=== PATIENT | female | born 1975 | race Two or more races ===

== ENCOUNTER 2017-07-28 18:06 | Emergency (ER) | payer MEDICAID ==
[2017-07-28] MEDS ORDERED: PRED20TA PO (18:45)
[2017-07-28 19:01] VITALS: BP 131/91
== END 2017-07-28 19:02 | disposition home or self-care (01) ==
LOC: ER 18:07
DX: I77.6 Arteritis, unspecified (principal); Z79.899 Other long term (current) drug therapy
CPT/HCPCS: 99283

== ENCOUNTER 2020-03-11 09:20 | Day surgery (SDC) | payer MEDICAID ==
[2020-03-11] MEDS ORDERED: LIDOcaine 1% w/epiNEPHrine 1:200,000 30ml vial ONE (10:10)
== END 2020-03-12 12:46 | disposition home or self-care (01) ==
LOC: WOUND CARE 09:20
PROVIDERS: ATTEND Nurse Practitioner
DX: E11.622 Type 2 diabetes mellitus with other skin ulcer (principal); L98.492 Non-pressure chronic ulcer of skin of other sites with fat layer exposed; L73.2 Hidradenitis suppurativa; J44.9 Chronic obstructive pulmonary disease, unspecified; M19.90 Unspecified osteoarthritis, unspecified site; Z79.899 Other long term (current) drug therapy; Z79.84 Long term (current) use of oral hypoglycemic drugs
CPT/HCPCS: 82948; 87070; 87075; 87102; 97597

== ENCOUNTER 2020-03-18 09:25 | Day surgery (SDC) | payer MEDICAID ==
[2020-03-18] MEDS ORDERED: LIDOcaine 2% 5ml jelly ONE (10:16)
== END 2020-03-18 10:58 | disposition home or self-care (01) ==
LOC: WOUND CARE 09:25
PROVIDERS: ATTEND Nurse Practitioner
DX: E11.622 Type 2 diabetes mellitus with other skin ulcer (principal); L98.492 Non-pressure chronic ulcer of skin of other sites with fat layer exposed; L73.2 Hidradenitis suppurativa; J44.9 Chronic obstructive pulmonary disease, unspecified; M19.90 Unspecified osteoarthritis, unspecified site; Z79.899 Other long term (current) drug therapy; Z79.84 Long term (current) use of oral hypoglycemic drugs
CPT/HCPCS: 36416; 82948; 97597

== ENCOUNTER 2020-03-25 12:00 | Day surgery (SDC) | payer MEDICAID ==
[2020-03-25] MEDS ORDERED: LIDOcaine 2% 5ml jelly ONE (12:56)
== END 2020-03-25 14:26 | disposition home or self-care (01) ==
LOC: WOUND CARE 12:00
PROVIDERS: ATTEND Nurse Practitioner
DX: E11.622 Type 2 diabetes mellitus with other skin ulcer (principal); L98.492 Non-pressure chronic ulcer of skin of other sites with fat layer exposed; L73.2 Hidradenitis suppurativa; J44.9 Chronic obstructive pulmonary disease, unspecified; M19.90 Unspecified osteoarthritis, unspecified site; Z79.899 Other long term (current) drug therapy; Z79.84 Long term (current) use of oral hypoglycemic drugs
CPT/HCPCS: 15271; 36416; 82948; Q4196

== ENCOUNTER 2020-04-01 13:17 | Day surgery (SDC) | payer MEDICAID ==
[2020-04-01] MEDS ORDERED: LIDOcaine 2% 5ml jelly ONE (14:09)
== END 2020-04-01 15:06 | disposition home or self-care (01) ==
LOC: WOUND CARE 13:17
PROVIDERS: ATTEND Nurse Practitioner
DX: E11.622 Type 2 diabetes mellitus with other skin ulcer (principal); L98.492 Non-pressure chronic ulcer of skin of other sites with fat layer exposed; L73.2 Hidradenitis suppurativa; J44.9 Chronic obstructive pulmonary disease, unspecified; M19.90 Unspecified osteoarthritis, unspecified site; Z79.899 Other long term (current) drug therapy; Z79.84 Long term (current) use of oral hypoglycemic drugs
CPT/HCPCS: 87070; 87075; 87102; 97597; 97598

== ENCOUNTER 2020-04-07 12:45 | Day surgery (SDC) | payer MEDICAID | END 2020-04-07 14:30 | disposition home or self-care (01) | LOC: WOUND CARE 12:45 | PROVIDERS: ATTEND Nurse Practitioner | DX: E11.622 Type 2 diabetes mellitus with other skin ulcer (principal); L98.492 Non-pressure chronic ulcer of skin of other sites with fat layer exposed; L02.412 Cutaneous abscess of left axilla; L73.2 Hidradenitis suppurativa; J44.9 Chronic obstructive pulmonary disease, unspecified; M19.90 Unspecified osteoarthritis, unspecified site; Z79.899 Other long term (current) drug therapy; Z79.84 Long term (current) use of oral hypoglycemic drugs | CPT/HCPCS: 82948; 97597 ==

== ENCOUNTER 2020-04-21 10:47 | Day surgery (SDC) | payer MEDICAID ==
[2020-04-21] MEDS ORDERED: LIDOcaine 2% 5ml jelly ONE (11:19)
== END 2020-04-21 12:04 | disposition home or self-care (01) ==
LOC: WOUND CARE 10:47
PROVIDERS: ATTEND Nurse Practitioner
DX: E11.622 Type 2 diabetes mellitus with other skin ulcer (principal); L98.492 Non-pressure chronic ulcer of skin of other sites with fat layer exposed; L02.412 Cutaneous abscess of left axilla; L73.2 Hidradenitis suppurativa; J44.9 Chronic obstructive pulmonary disease, unspecified; M19.90 Unspecified osteoarthritis, unspecified site; Z79.899 Other long term (current) drug therapy; Z79.84 Long term (current) use of oral hypoglycemic drugs
CPT/HCPCS: 97597

== ENCOUNTER 2020-04-28 09:17 | Day surgery (SDC) | payer MEDICAID ==
[2020-04-28] MEDS ORDERED: LIDOcaine 2% 5ml jelly ONE (09:32)
== END 2020-04-28 10:08 | disposition home or self-care (01) ==
LOC: WOUND CARE 09:17
PROVIDERS: ATTEND Nurse Practitioner
DX: E11.622 Type 2 diabetes mellitus with other skin ulcer (principal); L98.492 Non-pressure chronic ulcer of skin of other sites with fat layer exposed; L02.412 Cutaneous abscess of left axilla; L73.2 Hidradenitis suppurativa; J44.9 Chronic obstructive pulmonary disease, unspecified; M19.90 Unspecified osteoarthritis, unspecified site; Z79.899 Other long term (current) drug therapy; Z79.84 Long term (current) use of oral hypoglycemic drugs
CPT/HCPCS: 36416; 82948; 97597

== ENCOUNTER 2020-05-05 09:27 | Outpatient (CLI) | payer MEDICAID ==
[2020-05-05] MEDS ORDERED: LIDOcaine 2% 5ml jelly ONE (09:43)
== END 2020-05-05 23:59 | disposition home or self-care (01) ==
LOC: WOUND CARE 09:27
PROVIDERS: ATTEND Nurse Practitioner
DX: L02.412 Cutaneous abscess of left axilla (principal); E11.622 Type 2 diabetes mellitus with other skin ulcer; L73.2 Hidradenitis suppurativa; L98.492 Non-pressure chronic ulcer of skin of other sites with fat layer exposed; J44.9 Chronic obstructive pulmonary disease, unspecified; M19.90 Unspecified osteoarthritis, unspecified site; Z79.899 Other long term (current) drug therapy; Z79.84 Long term (current) use of oral hypoglycemic drugs
CPT/HCPCS: 36416; 82948; 97597

== ENCOUNTER 2020-05-12 09:39 | Outpatient (CLI) | payer MEDICAID ==
[2020-05-12] MEDS ORDERED: LIDOcaine 2% 5ml jelly ONE (10:28)
== END 2020-05-12 23:59 | disposition home or self-care (01) ==
LOC: WOUND CARE 09:39
PROVIDERS: ATTEND Nurse Practitioner
DX: E11.622 Type 2 diabetes mellitus with other skin ulcer (principal); L98.492 Non-pressure chronic ulcer of skin of other sites with fat layer exposed; L02.412 Cutaneous abscess of left axilla; L73.2 Hidradenitis suppurativa; J44.9 Chronic obstructive pulmonary disease, unspecified; M19.90 Unspecified osteoarthritis, unspecified site; Z79.899 Other long term (current) drug therapy; Z79.84 Long term (current) use of oral hypoglycemic drugs
CPT/HCPCS: 82948; 97597

== ENCOUNTER 2020-05-19 10:10 | Outpatient (CLI) | payer MEDICAID ==
[2020-05-19] MEDS ORDERED: LIDOcaine 2% 5ml jelly ONE (10:36)
[2020-05-19 12:17] LABS: BASOPHILS # (AUTO) 0.1 X10'3 (0-0.2); BASOPHILS % (AUTO) 0.8 % (0-1); EOSINOPHILS # (AUTO) 0.6 X10'3 (0-0.9); EOSINOPHILS % (AUTO) 4.5 % (0-6); LYMPHOCYTES # (AUTO) 3.1 X10'3 (1.1-4.8); LYMPHOCYTES % (AUTO) 22.3 % (21-51); MEAN CORPUSCULAR HEMOGLOBIN 27.3 PG (27.0-31.0); MEAN CORPUSCULAR HGB CONC 32.6 g/dL (33.0-36.5); MEAN CORPUSCULAR VOLUME 83.8 FL (78-98); MEAN PLATELET VOLUME 7.2 FL (7.4-10.4); MONOCYTES # (AUTO) 0.6 X10'3 (0-0.9); MONOCYTES % (AUTO) 4.2 % (2-12); NEUTROPHILS # (AUTO) 9.6 X10'3 (1.8-7.7); NEUTROPHILS % (AUTO) 68.2 % (42-75); PRE OP HEMATOCRIT 43.1 % (35.0-45.0); PRE OP PLATELET COUNT 407 X10'3 (140-440); RED BLOOD COUNT 5.14 X10'6 (4.20-5.60); RED CELL DISTRIBUTION WIDTH 15.2 % (11.5-14.5)
[2020-05-19 12:30] LABS: ALBUMIN 3.3 G/DL (3.4-5.0); ALBUMIN/GLOBULIN RATIO 0.6 (1.1-1.5); ALKALINE PHOSPHATASE 80 IU/L (46-116); BLOOD UREA NITROGEN 11 MG/DL (7-18); BUN/CREATININE RATIO 11.5 (6.6-38.0); C-REACTIVE PROTEIN 2.56 MG/DL (0.0-0.5); CALCIUM 10.4 MG/DL (8.5-10.1); CHLORIDE 104 MMOL/L (99-107); CREATININE 0.96 MG/DL (0.40-0.90); PRE OP ALT 14 U/L (30-65); PRE OP ANION GAP 13 (8-16); PRE OP AST 10 U/L (10-37); PRE OP BILIRUB, TOTAL 0.3 MG/DL (0.0-1.0); PRE OP GLUCOSE 155 MG/DL (70-104); PRE OP SODIUM 137 MMOL/L (135-145); TOTAL CARBON DIOXIDE 20.2 MMOL/L (24-32); TOTAL PROTEIN 8.5 G/DL (6.4-8.2); eGFR 63 ML/MIN
== END 2020-05-19 23:59 | disposition home or self-care (01) ==
LOC: WOUND CARE 10:10
PROVIDERS: ATTEND Nurse Practitioner
DX: E11.622 Type 2 diabetes mellitus with other skin ulcer (principal); L98.492 Non-pressure chronic ulcer of skin of other sites with fat layer exposed; L73.2 Hidradenitis suppurativa; L02.412 Cutaneous abscess of left axilla; J44.9 Chronic obstructive pulmonary disease, unspecified; M19.90 Unspecified osteoarthritis, unspecified site; Z79.899 Other long term (current) drug therapy; Z79.84 Long term (current) use of oral hypoglycemic drugs
CPT/HCPCS: 36415; 36416; 80053; 82948; 85025; 85651; 86140; 87635; 93005; 97597

== ENCOUNTER 2020-05-27 07:53 | Day surgery (SDC) | payer MEDICAID ==
[2020-05-27] VITALS (10 sets, daily range): BP systolic 125–167; BP diastolic 77–103
[~2020-05-27] VITALS: Ht 162.6 cm; Wt 108.5 kg
[~2020-05-27 07:53] MED LIST: IBUP-1984 PO; LORA-660 PO; METF-436 PO; ceFAZolin 2gm in dextrose, iso 50 ML IV ONE; famotidine 20mg tablet PO ONE; ringers solution, lacted 1,000 ML IV SCH
[2020-05-27 09:33] LABS: PREOP HCG, QL SERUM NEGATIVE (NEGATIVE)
[2020-05-27] MEDS ORDERED: sevoflurane 250ml liquid IH ONE (10:22)
[2020-05-27] MEDS ORDERED: fentaNYL/PF 50MCG/1 ML 2ML syringe ONE (10:26)
[2020-05-27] MEDS ORDERED: midazolam 2 mg/2 ml injection ONE (10:28)
[2020-05-27] MEDS ORDERED: morphine 4 MG/ML inj SYRINge IV PRN (10:40)
[2020-05-27] MEDS ORDERED: proCHLORperazine 10 MG/2 ml inj IV PRN (10:40)
[2020-05-27] MEDS ORDERED: meperidine/PF 25mg/ml syringe IV PRN ×3 (10:40)
[2020-05-27] MEDS ORDERED: morphine 2 MG/ML inj. syringe IV PRN (10:40)
[2020-05-27] MEDS ORDERED: hydrALAZINE 20mg/ml inj. IV PRN (10:40)
[2020-05-27] MEDS ORDERED: acetaminophen 1,000mg/100ml IV 100 ML IV PRN (10:40)
[2020-05-27] MEDS ORDERED: labetalol 20mg/4ml (5mg/ml) syringe IV PRN (10:40)
[2020-05-27] MEDS ORDERED: ondansetron/PF 4mg/2ml inj IV PRN (10:40)
[2020-05-27] MEDS ORDERED: ringers solution, lacted 1,000 ML IV SCH (10:40)
[2020-05-27] MEDS ORDERED: LIDOcaine 2% (20mg/ml) 5ml vial ONE (10:42)
[2020-05-27] MEDS ORDERED: propofol inj 20 ML IV ONE (10:42)
[2020-05-27] MEDS ORDERED: dexamethasone sod phosphate 4mg/ml inj. ONE (10:42)
[2020-05-27] MEDS ORDERED: ondansetron/PF 4mg/2ml inj ONE (10:42)
[2020-05-27] MEDS ORDERED: morphine 10mg/ml inj. ONE ×2 (11:39→11:43)
[2020-05-27] MEDS ORDERED: BUPIVAcaine/PF 2.5 mg/ml (0.25%) 30ml vial ONE (11:43)
[2020-05-27] MEDS ORDERED: acetaminophen 1,000mg/100ml IV 100 ML IV ONE (12:06)
--- NOTE | 2020-05-27 12:29 | NUR ---
Received from OR via [facility] , accompanied by Anesthesiologist JAMIE and report given by Anesthesiolgist. ADWOA WITH SLING TO LEFT UE. + RADIAL PULSE PRESENT. ANTERIOR DRESSING IS CDI. PATIENT WITH 10L MASK ON WITH 100% SATURATIONS. DENIES PAIN AT THIS TIME. Addendum: 05/27/20 at 1245 by Milton Javed RN, RN Amended: Links added.
--- NOTE | 2020-05-27 13:05 | NUR ---
MACEY IN RR. 125 Addendum: 05/27/20 at 1306 by Milton Heredia - MIGNON RN Amended: Links added.
--- NOTE | 2020-05-27 13:49 | NUR ---
PATIENT AND FAMILY AND THEY HAVE VERBALIZED UNDERSTANDING, OPPORTUNITY TO ASK QUESTIONS GIVEN AND PATIENT COMFORTABLE WITH DC. IV TAKEN OUT WITHOUT COMPLICATION. PATIENT HAS MET ALL DC CRITERIA FOR DC HOME. I HAVE REVIEWED D/C INSTRUCTIONS WITH OUT VIA WHEELCHAIR WHERE PATIENT WAS TAKEN HOME WITH ALL BELONGINGS. FAMILY GAVE PATIENT TRANSPORT HOME. PATIENT GIVEN PRESCRIPTION FROM [facility] FROM WOUND CARE. SPOUSE DROVE PATIENT HOME. REMINDED OF HOW TO EMPTY DRAINS AND OF HER WOUND CARE APPOINTMENT (ON PAPERWORK) NEXT MONDAY AT 1100. Addendum: 05/27/20 at 1411 by Milton Javed RN, RN Amended: Links added.
== END 2020-05-27 13:49 | disposition home or self-care (01) ==
LOC: PAS 07:53
PROVIDERS: ATTEND Surgery
DX: L73.2 Hidradenitis suppurativa (principal); E66.9 Obesity, unspecified; Z68.41 Body mass index [BMI] 40.0-44.9, adult; E11.9 Type 2 diabetes mellitus without complications; Z98.890 Other specified postprocedural states; J45.909 Unspecified asthma, uncomplicated; Z79.899 Other long term (current) drug therapy
CPT/HCPCS: 10061; 36415; 82948; 84703; J0131; J1100; J2001; J2250; J2270; J2405; J2704; J3010; J3490; J7120; L3670; A4215; A4618; A6253; A6449; A7000

== ENCOUNTER 2020-05-29 11:20 | Outpatient (CLI) | payer MEDICAID ==
[~2020-05-29 11:20] MED LIST changes: +LORA-657 PO; -LORA-660 PO; -ceFAZolin 2gm in dextrose, iso 50 ML IV ONE; -famotidine 20mg tablet PO ONE; -ringers solution, lacted 1,000 ML IV SCH
== END 2020-05-29 23:59 | disposition home or self-care (01) ==
LOC: WOUND CARE 11:20
PROVIDERS: ATTEND Nurse Practitioner
DX: T81.89XA Other complications of procedures, not elsewhere classified, initial encounter (principal); E11.622 Type 2 diabetes mellitus with other skin ulcer; L98.492 Non-pressure chronic ulcer of skin of other sites with fat layer exposed; L73.2 Hidradenitis suppurativa; L02.412 Cutaneous abscess of left axilla; J44.9 Chronic obstructive pulmonary disease, unspecified; M19.90 Unspecified osteoarthritis, unspecified site; E66.9 Obesity, unspecified; Z79.899 Other long term (current) drug therapy; Z79.84 Long term (current) use of oral hypoglycemic drugs; Z68.41 Body mass index [BMI] 40.0-44.9, adult; Z98.890 Other specified postprocedural states; Y92.238 Other place in hospital as the place of occurrence of the external cause; Y83.8 Other surgical procedures as the cause of abnormal reaction of the patient, or of later complication, without mention of misadventure at the time of the procedure
CPT/HCPCS: 82948; G0463

== ENCOUNTER 2020-06-04 10:45 | Outpatient (CLI) | payer MEDICAID ==
[~2020-06-04 10:45] MED LIST changes: -LORA-657 PO; +LORA-660 PO
== END 2020-06-04 23:59 | disposition home or self-care (01) ==
LOC: WOUND CARE 10:45
PROVIDERS: ATTEND Nurse Practitioner
DX: T81.89XA Other complications of procedures, not elsewhere classified, initial encounter (principal); E11.622 Type 2 diabetes mellitus with other skin ulcer; L98.492 Non-pressure chronic ulcer of skin of other sites with fat layer exposed; L73.2 Hidradenitis suppurativa; E66.9 Obesity, unspecified; J44.9 Chronic obstructive pulmonary disease, unspecified; M19.90 Unspecified osteoarthritis, unspecified site; Z68.41 Body mass index [BMI] 40.0-44.9, adult; Z79.899 Other long term (current) drug therapy; Z98.890 Other specified postprocedural states; Z79.84 Long term (current) use of oral hypoglycemic drugs; Y92.238 Other place in hospital as the place of occurrence of the external cause; Y83.8 Other surgical procedures as the cause of abnormal reaction of the patient, or of later complication, without mention of misadventure at the time of the procedure
CPT/HCPCS: 36416; 82948; G0463

== ENCOUNTER 2020-06-08 11:15 | Outpatient (CLI) | payer MEDICAID | END 2020-06-08 23:59 | disposition home or self-care (01) | LOC: WOUND CARE 11:15 | PROVIDERS: ATTEND Nurse Practitioner Family | DX: T81.89XD Other complications of procedures, not elsewhere classified, subsequent encounter (principal); E11.622 Type 2 diabetes mellitus with other skin ulcer; L98.492 Non-pressure chronic ulcer of skin of other sites with fat layer exposed; L73.2 Hidradenitis suppurativa; E66.9 Obesity, unspecified; J44.9 Chronic obstructive pulmonary disease, unspecified; M19.90 Unspecified osteoarthritis, unspecified site; Z68.41 Body mass index [BMI] 40.0-44.9, adult; Z79.899 Other long term (current) drug therapy; Z98.890 Other specified postprocedural states; Z79.84 Long term (current) use of oral hypoglycemic drugs; Y83.8 Other surgical procedures as the cause of abnormal reaction of the patient, or of later complication, without mention of misadventure at the time of the procedure | CPT/HCPCS: 82948; G0463 ==

== ENCOUNTER 2020-06-16 10:10 | Outpatient (CLI) | payer MEDICAID | END 2020-06-16 23:59 | disposition home or self-care (01) | LOC: WOUND CARE 10:10 | PROVIDERS: ATTEND Nurse Practitioner | DX: T81.89XD Other complications of procedures, not elsewhere classified, subsequent encounter (principal); E11.622 Type 2 diabetes mellitus with other skin ulcer; L98.492 Non-pressure chronic ulcer of skin of other sites with fat layer exposed; L73.2 Hidradenitis suppurativa; E66.9 Obesity, unspecified; J44.9 Chronic obstructive pulmonary disease, unspecified; M19.90 Unspecified osteoarthritis, unspecified site; Z79.899 Other long term (current) drug therapy; Z98.890 Other specified postprocedural states; Z79.84 Long term (current) use of oral hypoglycemic drugs; Y83.8 Other surgical procedures as the cause of abnormal reaction of the patient, or of later complication, without mention of misadventure at the time of the procedure | CPT/HCPCS: 36416; 82948; 87070; 87075; G0463 ==

== ENCOUNTER 2020-06-19 10:08 | Outpatient (CLI) | payer MEDICAID ==
[~2020-06-19 10:08] MED LIST changes: +LORA-657 PO; -LORA-660 PO
[2020-06-19] MEDS ORDERED: LIDOcaine 2% 5ml jelly ONE (10:34)
== END 2020-06-19 23:59 | disposition home or self-care (01) ==
LOC: WOUND CARE 10:08
PROVIDERS: ATTEND Nurse Practitioner
DX: T81.89XD Other complications of procedures, not elsewhere classified, subsequent encounter (principal); E11.622 Type 2 diabetes mellitus with other skin ulcer; L98.492 Non-pressure chronic ulcer of skin of other sites with fat layer exposed; L73.2 Hidradenitis suppurativa; E66.9 Obesity, unspecified; J44.9 Chronic obstructive pulmonary disease, unspecified; M19.90 Unspecified osteoarthritis, unspecified site; Z79.899 Other long term (current) drug therapy; Z98.890 Other specified postprocedural states; Z68.41 Body mass index [BMI] 40.0-44.9, adult; Z79.84 Long term (current) use of oral hypoglycemic drugs; Y83.8 Other surgical procedures as the cause of abnormal reaction of the patient, or of later complication, without mention of misadventure at the time of the procedure
CPT/HCPCS: 11042; 36416; 82948; 97605

== ENCOUNTER 2020-06-26 08:44 | Outpatient (CLI) | payer MEDICAID ==
[2020-06-26] MEDS ORDERED: LIDOcaine 2% 5ml jelly ONE (09:15)
== END 2020-06-26 23:59 | disposition home or self-care (01) ==
LOC: WOUND CARE 08:44
PROVIDERS: ATTEND Nurse Practitioner
DX: T81.89XD Other complications of procedures, not elsewhere classified, subsequent encounter (principal); E11.622 Type 2 diabetes mellitus with other skin ulcer; L98.492 Non-pressure chronic ulcer of skin of other sites with fat layer exposed; L73.2 Hidradenitis suppurativa; E66.9 Obesity, unspecified; J44.9 Chronic obstructive pulmonary disease, unspecified; M19.90 Unspecified osteoarthritis, unspecified site; Z79.899 Other long term (current) drug therapy; Z98.890 Other specified postprocedural states; Z68.41 Body mass index [BMI] 40.0-44.9, adult; Z79.84 Long term (current) use of oral hypoglycemic drugs; Y83.8 Other surgical procedures as the cause of abnormal reaction of the patient, or of later complication, without mention of misadventure at the time of the procedure
CPT/HCPCS: 11042; 82948; 97605

== ENCOUNTER 2020-07-03 08:44 | Outpatient (CLI) | payer MEDICAID ==
[2020-07-03] MEDS ORDERED: LIDOcaine 2% 5ml jelly ONE ×2 (09:08)
== END 2020-07-03 23:59 | disposition home or self-care (01) ==
LOC: WOUND CARE 08:44
PROVIDERS: ATTEND Nurse Practitioner
DX: T81.89XD Other complications of procedures, not elsewhere classified, subsequent encounter (principal); E11.622 Type 2 diabetes mellitus with other skin ulcer; L98.492 Non-pressure chronic ulcer of skin of other sites with fat layer exposed; L73.2 Hidradenitis suppurativa; E66.9 Obesity, unspecified; J44.9 Chronic obstructive pulmonary disease, unspecified; M19.90 Unspecified osteoarthritis, unspecified site; Z79.899 Other long term (current) drug therapy; Z98.890 Other specified postprocedural states; Z68.41 Body mass index [BMI] 40.0-44.9, adult; Z79.84 Long term (current) use of oral hypoglycemic drugs; Y83.8 Other surgical procedures as the cause of abnormal reaction of the patient, or of later complication, without mention of misadventure at the time of the procedure
CPT/HCPCS: 97597; G0463

== ENCOUNTER 2020-07-06 08:37 | Outpatient (CLI) | payer MEDICAID ==
[2020-07-06] MEDS ORDERED: LIDOcaine 2% 5ml jelly ONE (08:56)
== END 2020-07-06 23:59 | disposition home or self-care (01) ==
LOC: WOUND CARE 08:37
PROVIDERS: ATTEND Nurse Practitioner
DX: T81.89XD Other complications of procedures, not elsewhere classified, subsequent encounter (principal); E11.622 Type 2 diabetes mellitus with other skin ulcer; L98.492 Non-pressure chronic ulcer of skin of other sites with fat layer exposed; L73.2 Hidradenitis suppurativa; E66.9 Obesity, unspecified; J44.9 Chronic obstructive pulmonary disease, unspecified; M19.90 Unspecified osteoarthritis, unspecified site; Z79.899 Other long term (current) drug therapy; Z98.890 Other specified postprocedural states; Z68.41 Body mass index [BMI] 40.0-44.9, adult; Z79.84 Long term (current) use of oral hypoglycemic drugs; Y83.8 Other surgical procedures as the cause of abnormal reaction of the patient, or of later complication, without mention of misadventure at the time of the procedure
CPT/HCPCS: 82948; G0463

== ENCOUNTER 2020-07-13 08:37 | Outpatient (CLI) | payer MEDICAID ==
[2020-07-13] MEDS ORDERED: LIDOcaine 2% 5ml jelly ONE (09:26)
== END 2020-07-13 23:59 | disposition home or self-care (01) ==
LOC: WOUND CARE 08:37
PROVIDERS: ATTEND Nurse Practitioner Family
DX: T81.89XD Other complications of procedures, not elsewhere classified, subsequent encounter (principal); E11.622 Type 2 diabetes mellitus with other skin ulcer; L98.492 Non-pressure chronic ulcer of skin of other sites with fat layer exposed; L73.2 Hidradenitis suppurativa; E66.9 Obesity, unspecified; J44.9 Chronic obstructive pulmonary disease, unspecified; M19.90 Unspecified osteoarthritis, unspecified site; Z79.899 Other long term (current) drug therapy; Z98.890 Other specified postprocedural states; Z68.41 Body mass index [BMI] 40.0-44.9, adult; Z79.84 Long term (current) use of oral hypoglycemic drugs; Y83.8 Other surgical procedures as the cause of abnormal reaction of the patient, or of later complication, without mention of misadventure at the time of the procedure
CPT/HCPCS: 82948; 97597; 97598

== ENCOUNTER 2020-07-20 08:26 | Outpatient (CLI) | payer MEDICAID | END 2020-07-20 23:59 | disposition home or self-care (01) | LOC: WOUND CARE 08:26 | PROVIDERS: ATTEND Nurse Practitioner Family | DX: T81.89XD Other complications of procedures, not elsewhere classified, subsequent encounter (principal); E11.622 Type 2 diabetes mellitus with other skin ulcer; L98.492 Non-pressure chronic ulcer of skin of other sites with fat layer exposed; L73.2 Hidradenitis suppurativa; E66.9 Obesity, unspecified; J44.9 Chronic obstructive pulmonary disease, unspecified; M19.90 Unspecified osteoarthritis, unspecified site; Z79.899 Other long term (current) drug therapy; Z98.890 Other specified postprocedural states; Z68.41 Body mass index [BMI] 40.0-44.9, adult; Z79.84 Long term (current) use of oral hypoglycemic drugs; Y83.8 Other surgical procedures as the cause of abnormal reaction of the patient, or of later complication, without mention of misadventure at the time of the procedure | CPT/HCPCS: 82948; G0463 ==

== ENCOUNTER 2020-08-06 09:21 | Inpatient (IN) | payer MEDICAID ==
[2020-08-06] VITALS (8 sets, daily range): BP systolic 119–151; BP diastolic 67–96
[~2020-08-06] VITALS: Ht 162.6 cm; Wt 102.9 kg
[~2020-08-06 09:21] MED LIST changes: +LIDOcaine 2% 5ml jelly ONE
[2020-08-06] MEDS ORDERED: heparin 10,000 units/1 ML INJ IV ONE ×2 (10:45→11:30)
[2020-08-06] MEDS ORDERED: heparin 10,000 units/1 ML INJ IV PRN ×2 (10:45→11:30)
[2020-08-06 11:01] LABS: BASOPHILS # (AUTO) 0.1 X10'3 (0-0.2); BASOPHILS % (AUTO) 0.4 % (0-1); EOSINOPHILS # (AUTO) 0.4 X10'3 (0-0.9); HEMATOCRIT 40.2 % (35.0-45.0); HEMOGLOBIN 13.2 g/dl (12.0-16.0); LYMPHOCYTES # (AUTO) 2.3 X10'3 (1.1-4.8); LYMPHOCYTES % (AUTO) 16.2 % (21-51); MEAN CORPUSCULAR HEMOGLOBIN 26.8 PG (27.0-31.0); MEAN CORPUSCULAR HGB CONC 32.8 g/dL (33.0-36.5); MEAN CORPUSCULAR VOLUME 81.7 FL (78-98); MEAN PLATELET VOLUME 7.3 FL (7.4-10.4); MONOCYTES # (AUTO) 0.5 X10'3 (0-0.9); MONOCYTES % (AUTO) 3.8 % (2-12); NEUTROPHILS # (AUTO) 10.9 X10'3 (1.8-7.7); NEUTROPHILS % (AUTO) 76.6 % (42-75); PLATELET COUNT 348 X10'3 (140-440); RED BLOOD COUNT 4.93 X10'6 (4.20-5.60); RED CELL DISTRIBUTION WIDTH 16.3 % (11.5-14.5); WHITE BLOOD COUNT 14.3 X10'3 (4.5-11.0)
[2020-08-06 11:12] LABS: ALBUMIN 3.2 G/DL (3.4-5.0); ANION GAP 9 (8-16); BLOOD UREA NITROGEN 10 MG/DL (7-18); BUN/CREATININE RATIO 9.9 (6.6-38.0); CALCIUM 9.6 MG/DL (8.5-10.1); CHLORIDE 105 MMOL/L (99-107); CREATININE 1.01 MG/DL (0.40-0.90); GLUCOSE 145 MG/DL (70-104); POTASSIUM 3.9 MMOL/L (3.5-5.1); SODIUM 138 MMOL/L (135-145); TOTAL CARBON DIOXIDE 24.1 MMOL/L (24-32); eGFR 60 ML/MIN
[2020-08-06] MEDS: heparin 25,000 UNIT/250ml bag 250 ML IV SCH (11:14)
[2020-08-06] MEDS ORDERED: heparin 25,000 UNIT/250ml bag 250 ML IV SCH (11:30)
[2020-08-06] MEDS ORDERED: dextrose 50%-water 50ml dispensing syringe IV PRN ×2 (11:30)
[2020-08-06] MEDS ORDERED: HYDROcodone/acetaminophen 5mg/325mg tablet PO PRN (11:30)
[2020-08-06] MEDS ORDERED: MESSAGE TO PHARMACY PO ONE (11:30)
[2020-08-06] MEDS ORDERED: dextrose ORAL solution 15 GM/59 ML bottle PO PRN ×2 (11:30)
[2020-08-06] MEDS ORDERED: magnesium 4gm in 100ml NS 100 ML IV PRN (11:30)
[2020-08-06] MEDS ORDERED: magnesium 2GM in 50ml NS 50 ML IV PRN (11:30)
[2020-08-06] MEDS ORDERED: mag hydrox/Alum hydrox/simeth 30ml oral suspension PO PRN (11:30)
[2020-08-06] MEDS ORDERED: HYDROcodone/acetaminophen 10/325mg tab PO PRN (11:30)
[2020-08-06] MEDS ORDERED: insulin Lispro (HumaLOG) vial - multi-dose SQ SCH (11:30)
[2020-08-06] MEDS ORDERED: ondansetron/PF 4mg/2ml inj IV PRN (11:30)
[2020-08-06] MEDS ORDERED: glucagon, human recombinant 1mg kit SUBCUT PRN (11:30)
[2020-08-06] MEDS ORDERED: acetaminophen 325mg tablet PO PRN ×2 (11:30)
[2020-08-06] MEDS ORDERED: potassium Cl 20 mEq SR tablet PO PRN ×2 (11:30)
[2020-08-06] MEDS ORDERED: magnesium hydroxide 30ml (MOM) UD suspension PO PRN (11:30)
[2020-08-06] MEDS ORDERED: potassium Cl 40MEQ/1/2NS 520ml 520 ML IV PRN ×2 (11:30)
[2020-08-06] MEDS: normal saline 1000ml 1,000 ML IV SCH ×3 (12:04→21:30)
[2020-08-06] MEDS ORDERED: iohexol 300mg/ml 100ml inj. ONE (12:46)
[2020-08-06] MEDS ORDERED: fentaNYL/PF 50MCG/1 ML 2ML syringe ONE ×2 (13:13→13:51)
[2020-08-06] MEDS ORDERED: midazolam 2 mg/2 ml injection ONE ×2 (13:13→13:50)
--- NOTE | 2020-08-06 13:28 | NUR ---
PT TO IR FOR PROCEDURE
[2020-08-06] MEDS ORDERED: tPA-cathflo 2 MG/2 ml IV flush ONE (13:30)
[2020-08-06] MEDS ORDERED: FLUSH ICATH ONE (13:35)
[2020-08-06] MEDS ORDERED: NORMAL SALINE ICATH ONE (13:35)
[2020-08-06] MEDS ORDERED: TPA CATHFLO ICATH ONE (13:35)
[2020-08-06] MEDS ORDERED: ANGIO IV ONE ×2 (13:40→13:45)
[2020-08-06] MEDS ORDERED: NORMAL SALINE IV ONE ×2 (13:40→13:45)
[2020-08-06] MEDS ORDERED: ALTEPLASE IV ONE ×2 (13:40→13:45)
--- NOTE | 2020-08-06 15:21 | NUR ---
Patient in room PCU 3027. I have received report from LEE CROW and had the opportunity to ask questions and assume patient care. PT SETTLED INTO BED. CALL LIGHT IN REACH Addendum: 08/06/20 at 1525 by Zita Jackson RN Amended: Links added.
--- NOTE | 2020-08-06 18:48 | NUR ---
Problems reprioritized. Patient report given, questions answered & plan of care reviewed with MIGUELANGEL CROW. PT EATING DINNER. NO DISTRESS. CALL LIGHT IN REACH
[2020-08-06] MEDS: K and/or MAG REPLACEMENT MC SCH (20:00)
[2020-08-06] MEDS ORDERED: insulin glargine (Lantus) pen - multi-dose SQ SCH (21:00)
[2020-08-07] MEDS: heparin 25,000 UNIT/250ml bag 250 ML IV SCH (00:16)
[2020-08-07] MEDS: normal saline 1000ml 1,000 ML IV SCH (04:36)
[2020-08-07 06:05] LABS: BASOPHILS # (AUTO) 0.1 X10'3 (0-0.2); BASOPHILS % (AUTO) 0.6 % (0-1); EOSINOPHILS # (AUTO) 0.7 X10'3 (0-0.9); EOSINOPHILS % (AUTO) 5.8 % (0-6); HEMATOCRIT 35.9 % (35.0-45.0); HEMOGLOBIN 11.5 g/dl (12.0-16.0); LYMPHOCYTES # (AUTO) 3.3 X10'3 (1.1-4.8); LYMPHOCYTES % (AUTO) 26.6 % (21-51); MEAN CORPUSCULAR HEMOGLOBIN 26.7 PG (27.0-31.0); MEAN CORPUSCULAR HGB CONC 32.2 g/dL (33.0-36.5); MEAN CORPUSCULAR VOLUME 82.8 FL (78-98); MEAN PLATELET VOLUME 7.6 FL (7.4-10.4); MONOCYTES # (AUTO) 0.6 X10'3 (0-0.9); MONOCYTES % (AUTO) 4.6 % (2-12); NEUTROPHILS # (AUTO) 7.6 X10'3 (1.8-7.7); NEUTROPHILS % (AUTO) 62.4 % (42-75); PLATELET COUNT 274 X10'3 (140-440); RED BLOOD COUNT 4.33 X10'6 (4.20-5.60); RED CELL DISTRIBUTION WIDTH 16.3 % (11.5-14.5); WHITE BLOOD COUNT 12.2 X10'3 (4.5-11.0)
--- NOTE | 2020-08-07 06:11 | NUR ---
Problems reprioritized. Patient report given, questions answered & plan of care reviewed with YOHANNES CROW
[2020-08-07 06:36] LABS: ALANINE AMINOTRANSFERASE 13 U/L (12-78); ALBUMIN 2.5 G/DL (3.4-5.0); ALBUMIN/GLOBULIN RATIO 0.6 (1.1-1.5); ALKALINE PHOSPHATASE 65 IU/L (46-116); ANION GAP 10 (8-16); ASPARTATE AMINO TRANSFERASE 10 U/L (10-37); BILIRUBIN,TOTAL 0.6 MG/DL (0.1-1.0); BLOOD UREA NITROGEN 9 MG/DL (7-18); BUN/CREATININE RATIO 9.6 (6.6-38.0); CALCIUM 8.6 MG/DL (8.5-10.1); CHLORIDE 108 MMOL/L (99-107); CHOL/HDL RATIO 3.3 (0.00-4.99); CHOLESTEROL 125 MG/DL (0-200); CREATININE 0.94 MG/DL (0.40-0.90); GLUCOSE 136 MG/DL (70-104); HDL CHOLESTEROL 38 MG/DL (35-60); LDL CHOLESTEROL 81 MG/DL (50-100); MAGNESIUM 1.9 MG/DL (1.5-2.4); POTASSIUM 3.7 MMOL/L (3.5-5.1); SODIUM 140 MMOL/L (135-145); TOTAL CARBON DIOXIDE 22.2 MMOL/L (24-32); TOTAL PROTEIN 6.9 G/DL (6.4-8.2); TRIGLYCERIDES 98 MG/DL (20-135); eGFR 65 ML/MIN
--- NOTE | 2020-08-07 06:53 | NUR ---
Patient in room PCU 3027. I have received report from Tiffanie CROW and had the opportunity to ask questions and assume patient care.
[2020-08-07 07:00] VITALS: BP 121/68
[2020-08-07] MEDS: K and/or MAG REPLACEMENT MC SCH (08:00)
--- NOTE | 2020-08-07 09:24 | NUR ---
Dr. Correa at bedside with nurse and patient. MD is OK for patient to be discharged. No pain or c/o of pain or distress. Will continue to monitor until; discharge instructions are implemented.
[2020-08-07] MEDS ORDERED: ATOR20TA66 PO (09:49)
[2020-08-07] MEDS ORDERED: APIX5TAB3 PO (09:49)
--- NOTE | 2020-08-07 11:00 | NUR ---
Patient ok to discharge per MD orders. Patient's tele removed and PIV removed. Patient discharge instruction were educated on and medications sent to pharmacy via transmitted. Medications were educated and gone over. Patient stated that she has a follow up with PCP on aug 17, 2020. Diabetes was educated on and A1c 7.0 down from 7.4. Patient was able to dress self and collect all personal items with discharge instructions. [facility] Patient was meet by in personal car to be discharge home.
--- NOTE | 2020-08-07 13:05 | NUR ---
DM Education: Pt given written DM education prior to DC. Addendum: 08/07/20 at 1305 by Santos Hallman PERCUSSION INSTRUCTOR RD Amended: Links added. Addendum: 08/07/20 at [address] RD agree with internal audit manager note
== END 2020-08-07 11:12 | disposition home or self-care (01) | DRG 182 ==
LOC: ER 09:22 → ED HOLD 11:28 → PCU 3S 15:13
PROVIDERS: ADMIT Family Medicine; ATTEND Family Medicine
PROC: 067M3ZZ Dilation of Right Femoral Vein, Percutaneous Approach (ICD-10-PCS; principal; 2020-08-06)
PROC: 3E04317 Introduction of Other Thrombolytic into Central Vein, Percutaneous Approach (ICD-10-PCS; 2020-08-06)
PROC: 06CM3ZZ Extirpation of Matter from Right Femoral Vein, Percutaneous Approach (ICD-10-PCS; 2020-08-06)
PROC: B51B1ZZ Fluoroscopy of Right Lower Extremity Veins using Low Osmolar Contrast (ICD-10-PCS; 2020-08-06)
DX: I82.401 Acute embolism and thrombosis of unspecified deep veins of right lower extremity (principal); E11.9 Type 2 diabetes mellitus without complications; E78.5 Hyperlipidemia, unspecified; Z20.822 Contact with and (suspected) exposure to COVID-19; Z79.899 Other long term (current) drug therapy; Z83.3 Family history of diabetes mellitus; Z79.84 Long term (current) use of oral hypoglycemic drugs; Z82.49 Family history of ischemic heart disease and other diseases of the circulatory system
CPT/HCPCS: 36005; 36415; 37187; 37248; 75820; 76937; 80048; 80053; 80061; 82948; 83036; 83735; 85025; 85610; 85730; 87081; 87635; 93971; 96374; 96376; 99285; C1725; C1751; C1757; C1769; C1887; C1894; G0378; J1644; J1815; J2250; J2997; J3010; J7030; Q9967

== ENCOUNTER 2021-06-25 07:49 | Emergency (ER) | payer MEDICAID ==
[~2021-06-25] VITALS: Ht 162.6 cm; Wt 97.6 kg
[~2021-06-25 07:49] MED LIST changes: +APIX5TAB3 PO; +ATOR20TA66 PO; -IBUP-1984 PO; -LIDOcaine 2% 5ml jelly ONE
[2021-06-25 07:55] VITALS: BP 151/98
[2021-06-25] MEDS ORDERED: erythromycin ophthalmic ointment 1gm tube RIGHTEYE ONE (09:50)
[2021-06-25] MEDS ORDERED: proparacaine 0.5% ophthalmic drops 15ml EACHEYE ONE (09:50)
[2021-06-25] MEDS ORDERED: ERYT1OIN6 RIGHTEYE (10:17)
== END 2021-06-25 10:27 | disposition home or self-care (01) ==
LOC: ER 07:49
DX: H10.9 Unspecified conjunctivitis (principal); I77.6 Arteritis, unspecified; H57.11 Ocular pain, right eye; E11.9 Type 2 diabetes mellitus without complications; Z79.2 Long term (current) use of antibiotics; Z79.899 Other long term (current) drug therapy
CPT/HCPCS: 82948; 99283

== ENCOUNTER 2021-07-16 07:36 | Emergency (ER) | payer MEDICAID ==
[~2021-07-16] VITALS: Ht 162.6 cm; Wt 97.2 kg
[2021-07-16 08:15] VITALS: BP 163/110
[2021-07-16] MEDS ORDERED: LIDOcaine 1% W/epiNEPHrine 1:200,000 10ml vial IJ ONE (08:25)
[2021-07-16] MEDS ORDERED: LIDOcaine 1% W/epiNEPHrine 1:100,000 20ml vial SQ ONE (18:35)
== END 2021-07-16 19:16 | disposition home or self-care (01) ==
LOC: ER 07:36
DX: N76.4 Abscess of vulva (principal); L73.2 Hidradenitis suppurativa; E11.9 Type 2 diabetes mellitus without complications; Z79.899 Other long term (current) drug therapy
CPT/HCPCS: 56405; 87070; 87077; 87186; 99284

== ENCOUNTER 2022-04-06 05:18 | Emergency (ER) | payer MEDICAID ==
[~2022-04-06] VITALS: Ht 162.6 cm; Wt 93.5 kg
[2022-04-06] MEDS ORDERED: ADAL40SY INJ (06:48)
[2022-04-06 08:17] LABS: BASOPHILS % (AUTO) 0.3 % (0-1); EOSINOPHILS # (AUTO) 0.3 X10'3 (0-0.9); HEMATOCRIT 36.8 % (35.0-45.0); HEMOGLOBIN 11.8 g/dl (12.0-16.0); MEAN CORPUSCULAR HEMOGLOBIN 25.1 PG (27.0-31.0); MEAN CORPUSCULAR HGB CONC 32.1 g/dL (33.0-36.5); MEAN CORPUSCULAR VOLUME 78.2 FL (78-98); MEAN PLATELET VOLUME 6.7 FL (7.4-10.4); MONOCYTES # (AUTO) 0.5 X10'3 (0-0.9); MONOCYTES % (AUTO) 4.7 % (2-12); NEUTROPHILS # (AUTO) 8.4 X10'3 (1.8-7.7); PLATELET COUNT 430 X10'3 (140-440); RED BLOOD COUNT 4.71 X10'6 (4.20-5.60); RED CELL DISTRIBUTION WIDTH 17.9 % (11.5-14.5); WHITE BLOOD COUNT 11.3 X10'3 (4.5-11.0)
[2022-04-06 08:37] LABS: ALANINE AMINOTRANSFERASE 24 U/L (12-78); ALBUMIN 2.6 G/DL (3.4-5.0); ALBUMIN/GLOBULIN RATIO 0.4 (1.1-1.5); ALKALINE PHOSPHATASE 60 IU/L (46-116); ANION GAP 9 (8-16); ASPARTATE AMINO TRANSFERASE 24 U/L (10-37); BILIRUBIN,TOTAL 0.4 MG/DL (0.1-1.0); BLOOD UREA NITROGEN 10 MG/DL (7-18); BUN/CREATININE RATIO 10.6 (6.6-38.0); CALCIUM 9.2 MG/DL (8.5-10.1); CHLORIDE 107 MMOL/L (99-107); CREATININE 0.94 MG/DL (0.40-0.90); GLUCOSE 160 MG/DL (70-104); POTASSIUM 4.1 MMOL/L (3.5-5.1); SODIUM 139 MMOL/L (135-145); TOTAL PROTEIN 8.4 G/DL (6.4-8.2); eGFR 64 ML/MIN
[2022-04-06] MEDS ORDERED: APIX5TAB3 PO (09:47)
[2022-04-06] MEDS ORDERED: apixaban 5mg tablet PO ONE (09:53)
[2022-04-06 10:30] VITALS: BP 113/77
--- NOTE | 2022-04-07 11:48 | NUR ---
PT CALLED STATING THAT HER RX FOR ELEQUIST WAS NOT RECEIVED BY [facility] AFTER YESTERDAYS VISIT. [facility] CALLED: ELEQUIST 5MG TABLETS; 1 TAB PO BID x30 DAYS #70 2 TABLETS BID FOR THE FIRST 7 DAYS, FOLLOWED BY 1 TABLET BID x 21 DAYS CALLED INTO [facility] ON [address]
== END 2022-04-06 10:34 | disposition home or self-care (01) ==
LOC: ER 05:18
DX: I82.432 Acute embolism and thrombosis of left popliteal vein (principal); M79.605 Pain in left leg; I10 Essential (primary) hypertension; E11.9 Type 2 diabetes mellitus without complications; Z86.718 Personal history of other venous thrombosis and embolism; Z98.890 Other specified postprocedural states; Z79.899 Other long term (current) drug therapy
CPT/HCPCS: 36415; 80053; 85025; 93971; 99285

== ENCOUNTER 2023-05-02 08:08 | Emergency (ER) | payer MEDICAID ==
[~2023-05-02] VITALS: Ht 162.6 cm; Wt 103.0 kg
[~2023-05-02 08:08] MED LIST changes: +ADAL40SY INJ; -ATOR20TA66 PO; -LORA-657 PO
[2023-05-02 08:24] VITALS: BP 135/89; PULSE 70; TEMP 98; O2SAT 100
[2023-05-02 09:00] VITALS: RESP 18
[2023-05-02] MEDS ORDERED: LIDOcaine 1% W/epiNEPHrine 1:100,000 20ml vial SQ ONE (10:05)
--- NOTE | 2023-05-02 10:05 | NUR ---
DR. URIBE PICKED OUT EPI 1:100,000
[2023-05-02] MEDS ORDERED: LIDOCAINE 1%/EPI 1:100,000 inj. 10 ML multi-dose vial SQ ONE (10:10)
--- NOTE | 2023-05-02 14:45 | NUR ---
CEO ZIFF DAVIS ASSESSMENT REVIEWED BY MARY RN, APPROVED
== END 2023-05-02 11:20 | disposition home or self-care (01) ==
LOC: ER 08:09
DX: N76.4 Abscess of vulva (principal); E11.9 Type 2 diabetes mellitus without complications; I10 Essential (primary) hypertension
CPT/HCPCS: 56405; 99282; 99284; A6449

== ENCOUNTER 2023-05-25 07:30 | Emergency (ER) | payer MEDICAID ==
[~2023-05-25] VITALS: Ht 162.6 cm; Wt 96.3 kg
[2023-05-25 07:31] VITALS: BP 137/96; PULSE 69; RESP 16; TEMP 98.5; O2SAT 98
--- NOTE | 2023-05-25 08:04 | NUR ---
MSE complete, pt returned to lobby
[2023-05-25] MEDS ORDERED: LIDOcaine 1% 30ml preserv. free vial SQ STA (09:35)
[2023-05-25] MEDS ORDERED: DOXY-356 PO (12:49)
[2023-05-25] MEDS ORDERED: OXYC5CAP19 PO (12:49)
== END 2023-05-25 14:21 | disposition home or self-care (01) ==
LOC: ER 07:30
DX: L73.2 Hidradenitis suppurativa (principal); L02.211 Cutaneous abscess of abdominal wall
CPT/HCPCS: 10060; 99283; A6223; A6449

== ENCOUNTER 2025-02-04 13:26 | Emergency (ER) | payer MEDICAID ==
[~2025-02-04] VITALS: Ht 162.6 cm; Wt 102.5 kg
[~2025-02-04 13:26] MED LIST changes: +OXYC5CAP22 PO
[2025-02-04 13:58] VITALS: BP 130/84; PULSE 70; RESP 18; O2SAT 97
[2025-02-04] MEDS: LIDOcaine 1% W/epiNEPHrine 1:100,000 20ml vial SQ STA (15:29)
--- NOTE | 2025-02-04 16:28 | Physician Documentation ---
History of Present Illness ~ Chief Complaint: Abscess Stated Complaint: "I HAVE HS DX AND I NEED IT LANCED" Time Seen by MD: 13:59 Primary Medical Doctor: 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 Patient states he has been having issues for the last three or four days in his been unable to sleeping as a pain. Patient denies any fevers or chills. She states she needs the abscess lanced. She has no other concern or complaint at this time. Tetanus Within 5 Years: Yes Medication Reconciliation Allergies: Coded Allergies: No Known Allergies (Unverified , 02/04/25) Scheduled Apixaban (Eliquis), 1 TAB PO Q12H Metformin Hcl (Metformin Hcl), 1 TAB PO Q12H, (Reported) Oxycodone HCl (Oxycodone HCl), 1 CAP PO qid prn Miscellaneous Medications Adalimumab (Humira), 40 MG INJ, (Reported) Past Medical History Past Medical History: Hypertension, Vasculitis, Diabetes, Deep Vein Thrombosis, *DERMATOLOGY* Past Surgical History: other Other Past Surgical History: Thrombectomy Patient History: FH: diabetes mellitus Maternal Grandmother FH: heart disease Maternal Grandmother Alcohol Use: None Drug Use: none Lives with: Family Lives In: Home Review of Systems Constitutional: Denies: chills, fever, weakness Eyes: Denies: pain, blurred vision ENT: Denies: ear pain, nose pain, throat pain, mouth pain Respiratory: Denies: cough, shortness of breath Cardiovascular: Denies: chest pain, palpitations Gastrointestinal: Denies: abdominal pain, nausea, vomiting Genitourinary: Denies: burning, dysuria Female Genitalia: Denies: vaginal discharge, pelvic pain Neurological: Denies: headache, dizziness Musculoskeletal: Denies: pain, swelling Integumentary: Denies: rash, lesions Allergic/Immunologic: Denies: hives, itching Hematologic/Lymphatic: Denies: no symptoms reported Psychiatric: Denies: depression, anxiety Physical Exam Vital Signs: Temperature: 97.0, Source: Temporal, Heart Rate: 70, Respiratory Rate: 18, BP: 130/84, Pulse Oximetry: 97, Weight: 102.500 Physical Exam General: Awake and Alert, no acute distress. HEENT: Conjunctiva pink, Sclera clear, Mucus Membranes moist. Neck: Supple without masses and tenderness. Resp: Unlabored. Lungs clear to auscultation bilaterally. Heart: Regular Rate and rhythm, normal S1 and S2 without murmur, rub or gallop. Extremities: No cyanosis,clubbing or edema. Skin: Patient on exam does have fluctuant mass of her lower pannus/abdomen in the skin with chronic skin changes from multiple previous skin infections. Patient has significant tenderness to palpation of the area. There is no significant induration or erythema. Procedures I & D Procedure : Procedure Note Procedure note: 1 cc of lidocaine 1% with epinephrine was used to achieve local anesthesia of the fluctuant mass of the lower pannus. Area was cleansed and p repped using chlorhexidine. An 11 blade was used to Roberto the fluctuant mass/abscess and a large amount of foul-smelling purulent drainage was expelled measuring approximately 20 cc. Patient tolerated well. Bulky dressing with 4 x 4 gauze placed over drainage site. 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 Patient states he has been having issues for the last three or four days and has been unable to sleeping as a pain. Arvind watts denies any fevers or chills. She states she needs the abscess lanced. She has no other concern or complaint at this time. I was able to Roberto the abscess and a large amount of purulent drainage was expressed. Patient states he is feeling much better now. Patient declined antibiotic coverage at this time stating that due to the chronic nature she does not usually take antibiotics for this. Patient will continue daily dressing changes and will follow up with Dermatology for further eval and treatment. Return to ED with any worsening, concerning or changing symptoms. Departure Disposition: HOME / SELF CARE / HOMELESS Impression: Primary Impression: Abscess Condition: Improved Discharge Instructions: Abscess, Care After, Incision and Drainage Additional Instructions: I was able to Roberto the abscess and a large amount of purulent drainage was expressed. Patient states he is feeling much better now. Patient declined antibiotic coverage at this time stating that due to the chronic nature she does not usually take antibiotics for this. Patient will continue daily dressing changes and will follow up with Dermatology for further eval and treatment. Return to ED with any worsening, concerning or changing symptoms. Referrals: NO PRIMARY CARE PROVIDER (PCP) Signature Scribe Signature: No scribe Attestation: No scribe GALILEO GALLEGOS PAC Feb 04, 2025 16:28
[2025-02-04 16:46] VITALS: TEMP 97
== END 2025-02-04 16:48 | disposition home or self-care (01) ==
LOC: ER 13:27
DX: L02.211 Cutaneous abscess of abdominal wall (principal); E11.9 Type 2 diabetes mellitus without complications; I10 Essential (primary) hypertension; Z86.718 Personal history of other venous thrombosis and embolism; Z79.899 Other long term (current) drug therapy; Z79.84 Long term (current) use of oral hypoglycemic drugs
CPT/HCPCS: 10060; 99282; A6449